=== PATIENT | female | born 1950 | race Caucasian/White ===

== ENCOUNTER → 2020-01-16 | Outpatient (CLI) | payer MEDICARE, BC ==
--- NOTE | 2020-01-16 11:27 | Diagnostic Imaging Report ---
EXAM: Thyroid Ultrasound INDICATION: ^HYPERPARATHYROIDISM/HYPERCALCEMIA COMPARISON: None TECHNIQUE: Transverse and sagittal images were obtained of the thyroid gland. FINDINGS: Thyroid gland: Size: Right lobe: 4.7 x 1.6 x 2 cm, Normal in size Left lobe: 4.7 x 1.5 x 1.6 cm, Normal in size Isthmus: 0.5 cm, mildly thickened Appearance: Heterogeneous echotexture without increased vascularity Masses/Nodules: Right lobe: None Left lobe: 1.4 x 1.3 x 0.9 cm solid (2 pts) nodule in the interpolar region with smooth margin (0 pts), [id number]-[id number]-gmud (0 pts), hypoechoic (2 pts), and macrocalcifications (1 pt). TR4b. 0.7 x 0.6 x 0.5 cm cystic (0 pts) nodule in the lower pole with smooth margin (0 pts), [id number]-[id number]-dsya (0 pts), anechoic (0 pts), and punctate peripheral calcification. TR2, Not Suspicious: No FNA Parathyroid: No focal parathyroid masses. IMPRESSION: 1. Heterogeneous echotexture of the thyroid gland which may reflect nonspecific thyroiditis. 2. Left lobe 1.4 x 1.3 x 0.9 cm TR4b nodule. Follow-up sonography is recommended at 1, 2, 3, and 5 years. Signed by: Blayne Foster MD on 01/16/2020 11:24 AM
== END ==
LOC: US 09:15
PROVIDERS: ATTEND Internal Medicine
DX: E83.52 Hypercalcemia (principal)
CPT/HCPCS: 76536

== ENCOUNTER → 2020-01-24 | Outpatient (CLI) | payer MEDICARE, BC ==
--- NOTE | 2020-01-24 14:59 | Diagnostic Imaging Report ---
EXAM: BONE MINERAL DENSITY HISTORY: Hypercalcemia COMPARISON: None DISCUSSION: Evaluation of the left hip and lumbar spine was performed utilizing DEXA Hologic bone densitometer. The study is technically adequate. The patient's fracture risk is compared to an age-matched control. The patient denies prior surgery/fracture of the spine, hips or forearm. Left hip femoral neck bone mineral density: 0.788 g/cm2, T-score is -0.6, Z-score is 1.2. Left hip total bone mineral density: 0.836 g/cm2, T-score is -0.9, Z-score is 0.6. Lumbar spine total bone mineral density: 1.061 gm/cm2, T-score is 0.1, Z-score is 2.2. Impression: Bone mineralization by WHO Classification is normal, the fracture risk is not increased. Signed by: Dr. Brian Palomo M.D. on 01/24/2020 2:56 PM
--- NOTE | 2020-01-24 20:22 | Diagnostic Imaging Report ---
Parathyroid Scan with SPECT Reason for exam: Hyperparathyroidism Radiopharmaceutical: Tc-99m sestamibi 27 mCi After intravenous administration of the radiopharmaceutical, immediate and 2-hour planar images of the neck and upper chest were obtained. Tomographic images of the neck and upper chest were obtained following the initial planar images. On the initial planar images, a focus of increased tracer is seen in the mid aspect of the right thyroid lobe. On the tomographic images, this focus is localized immediately posterior to the plane of the thyroid at the mid aspect of the right thyroid lobe. On the delayed planar images, the thyroid washes out adequately and this focus persists. No other focal abnormalities are identified. Impression: Single enlarged hypermetabolic parathyroid gland is identified immediately posterior to the mid aspect of the right thyroid lobe. Signed by: Dr. Cristela Moreno M.D. on 01/24/2020 8:19 PM
== END ==
LOC: NM 13:03
PROVIDERS: ATTEND Internal Medicine
DX: E83.52 Hypercalcemia (principal)
CPT/HCPCS: 77080; 78071; A9500

== ENCOUNTER → 2020-02-01 | Outpatient (CLI) | payer MEDICARE, BC | LOC: MAMMO 10:20 | PROVIDERS: ATTEND Internal Medicine | DX: Z12.31 Encounter for screening mammogram for malignant neoplasm of breast (principal) | CPT/HCPCS: 77067 ==

== ENCOUNTER → 2021-11-17 | Outpatient (CLI) | payer MEDICARE, BC | LOC: MAMMO 08:49 | PROVIDERS: ATTEND Internal Medicine | DX: Z12.31 Encounter for screening mammogram for malignant neoplasm of breast (principal); M85.88 Other specified disorders of bone density and structure, other site | CPT/HCPCS: 77067; 77080 ==

== ENCOUNTER → 2022-03-13 | Outpatient (CLI) | payer MEDICARE, BC ==
[~2022-03-13] MED LIST: GADOBENATE DIMEGLUMINE 1 ML IV ONE
[2022-03-13 09:20] LABS: CREATININE, SERUM 0.68 mg/dL (0.57-1.11)
== END ==
LOC: MRI 08:35
PROVIDERS: ATTEND Otolaryngology
DX: H90.3 Sensorineural hearing loss, bilateral (principal); H93.12 Tinnitus, left ear
CPT/HCPCS: 36415; 70553; 82565; 84520; A9577

== ENCOUNTER → 2022-07-24 | Outpatient (CLI) | payer MEDICARE | LOC: MRI 11:07 | PROVIDERS: ATTEND Internal Medicine | DX: G89.11 Acute pain due to trauma (principal) | CPT/HCPCS: 72148 ==

== ENCOUNTER 2023-02-12 09:02 | Inpatient (IN) | payer MEDICARE ==
[~2023-02-12] VITALS: Ht 162.6 cm; Wt 93.0 kg
[~2023-02-12 09:02] MED LIST changes: +ACETAMINOPHEN-1 EAC4 PO; +ADVIL100 M1; -GADOBENATE DIMEGLUMINE 1 ML IV ONE; +INVOKAMET 150-1 EAC1 PO; +ULTRAM 50MG50 MG PO
[2023-02-12 09:34] LABS: BASOPHILS # (AUTO) 0.1 (0.0-0.1); BASOPHILS % 0.8 % (0.0-1.0); EOSINOPHILS # (AUTO) 0.3 (0.0-0.4); EOSINOPHILS % 3.9 % (0.0-6.0); HEMOGLOBIN 13.9 g/dL (12.0-16.0); LYMPHOCYTES # (AUTO) 1.9 (1.0-3.2); LYMPHOCYTES % 21.3 % (18.0-39.1); MEAN CORPUSCULAR HEMOGLOBIN 29.3 pg (28-32); MEAN CORPUSCULAR HGB CONC 33.1 g/dL (31-35); MEAN CORPUSCULAR VOLUME 88.6 fL (81-99); MONOCYTES # (AUTO) 0.7 (0.2-0.8); MONOCYTES % 8.1 % (4.4-11.3); NEUTROPHILS # (AUTO) 5.7 (2.1-6.9); NEUTROPHILS % 65.3 % (38.7-80.0); PLATELET COUNT 332 x10e3/uL (140-360); RED BLOOD COUNT 4.74 x10e6/uL (3.6-5.1); RED CELL DISTRIBUTION WIDTH 13.7 % (11.7-14.4); WHITE BLOOD COUNT 8.67 x10e3/uL (4.8-10.8)
[2023-02-12 09:59] LABS: ANION GAP 15.2 mmol/L (8-16); CALCIUM 11.1 mg/dL (8.4-10.2); CREATININE, SERUM 0.66 mg/dL (0.57-1.11); POTASSIUM 4.2 mmol/L (3.5-5.1)
[2023-02-12] MEDS ORDERED: LACTATED RINGER'S 1,000 ML ONE (10:07)
[2023-02-12] MEDS ORDERED: Vancomycin IV 1 GM VIAL ONE (11:54)
[2023-02-12] MEDS ORDERED: BUPIVACAINE HCL 0.5% INJ 30 ML VIAL INJ ONE (11:54)
[2023-02-12] MEDS ORDERED: LIDOCAINE HCL 2% LOCAL INJ 5 ML SDV VIAL INJ ONE (12:25)
[2023-02-12] MEDS ORDERED: ONDANSETRON HCL INJ 2MG/ML 2ML 2 MG/ML VIAL ONE (12:25)
[2023-02-12] MEDS ORDERED: SEVOFLURANE INHAL SOLN 250 ML PEN BTL ONE (12:25)
[2023-02-12] MEDS ORDERED: PROPOFOL IV EMULSION 10 MG/ML 20 ML VIAL ONE (12:25)
[2023-02-12] MEDS ORDERED: DEXAMETHASONE SOD PHOS INJ 4 MG/ML SDV ONE (12:25)
[2023-02-12] MEDS ORDERED: EPINEPHRINE HCL 1:1000 1ML 1 MG/ML AMP ONE (12:45)
[2023-02-12] MEDS ORDERED: ROPIVACAINE 0.5% 5 MG/ML 30 ML SDV ONE (12:45)
[2023-02-12] MEDS ORDERED: FENTANYL CITRATE/PF 100MCG/2 ML INJ ONE ×2 (13:45→13:52)
[2023-02-12] MEDS ORDERED: MIDAZOLAM HCL 2 MG/2 ML VIAL ONE (13:45)
[2023-02-12] MEDS ORDERED: ONDANSETRON HCL 4 MG ORAL DISINTEGRATING TAB ONE (16:43)
[2023-02-12] MEDS ORDERED: SCOPOLAMINE 1 MG PATCH ONE (16:58)
[2023-02-12] MEDS ORDERED: ONDANSETRON HCL 4 MG ORAL DISINTEGRATING TAB PO PRN (17:15)
[2023-02-12 18:43] VITALS: BP 133/63; PULSE 100; RESP 18; TEMP 97.9; O2SAT 96
[2023-02-12 20:00] VITALS: BP_SYST 128; BP_SYST 133; BP_DIAS 58; BP_DIAS 63; PULSE 100; PULSE 94; RESP 18; TEMP 97.9; TEMP 98.1; O2SAT 96
[2023-02-12 20:45] VITALS: BP 121/56; PULSE 86; RESP 18; TEMP 98.3; O2SAT 99
[2023-02-12 21:00] VITALS: BP 121/56; PULSE 86; RESP 18; TEMP 98.3; O2SAT 99
[2023-02-13 04:00] VITALS: BP 130/66; PULSE 96; RESP 18; TEMP 98.3; O2SAT 98
[2023-02-13] MEDS: ACETAMINOPHEN 325 MG TAB PO PRN (07:49)
[2023-02-13 08:42] VITALS: BP 110/58; PULSE 100; RESP 18; TEMP 98.1; O2SAT 95
[2023-02-13] MEDS: HYDROCODONE/APAP 7.5MG-325MG 1 EA TAB PO PRN ×3 (09:39→18:13)
[2023-02-13 12:37] VITALS: BP 112/57; PULSE 98; RESP 20; TEMP 99; O2SAT 93
[2023-02-13 16:25] VITALS: BP 125/67; PULSE 98; RESP 18; TEMP 99.1; O2SAT 93
[2023-02-13 20:00] VITALS: BP 129/65; PULSE 93; RESP 18; TEMP 98.3; O2SAT 92
[2023-02-14] VITALS: BP 124/71; PULSE 91; RESP 18; TEMP 98.1; O2SAT 93
[2023-02-14] MEDS: HYDROCODONE/APAP 7.5MG-325MG 1 EA TAB PO PRN ×4 (01:31→23:08)
[2023-02-14 08:10] VITALS: BP 123/68; PULSE 91; RESP 18; TEMP 97.7; O2SAT 95
[2023-02-14 09:25] LABS: BASOPHILS # (AUTO) 0.1 (0.0-0.1); BASOPHILS % 0.7 % (0.0-1.0); EOSINOPHILS # (AUTO) 0.3 (0.0-0.4); EOSINOPHILS % 2.5 % (0.0-6.0); HEMATOCRIT 40.4 % (34.2-44.1); HEMOGLOBIN 13.3 g/dL (12.0-16.0); LYMPHOCYTES # (AUTO) 2.6 (1.0-3.2); LYMPHOCYTES % 25.9 % (18.0-39.1); MEAN CORPUSCULAR HEMOGLOBIN 29.5 pg (28-32); MEAN CORPUSCULAR HGB CONC 32.9 g/dL (31-35); MEAN CORPUSCULAR VOLUME 89.6 fL (81-99); MONOCYTES % 10.3 % (4.4-11.3); NEUTROPHILS # (AUTO) 6.1 (2.1-6.9); NEUTROPHILS % 60.2 % (38.7-80.0); PLATELET COUNT 279 x10e3/uL (140-360); RED BLOOD COUNT 4.51 x10e6/uL (3.6-5.1); RED CELL DISTRIBUTION WIDTH 13.7 % (11.7-14.4)
[2023-02-14 09:51] LABS: ALBUMIN 3.2 g/dL (3.5-5.0); ALBUMIN/GLOBULIN RATIO 0.9 (0.8-2.0); ANION GAP 14.4 mmol/L (8-16); CREATININE, SERUM 0.68 mg/dL (0.57-1.11); POTASSIUM 4.4 mmol/L (3.5-5.1)
[2023-02-14 12:10] VITALS: BP 136/71; PULSE 94; RESP 18; TEMP 98.2; O2SAT 95
[2023-02-14 16:15] VITALS: BP 139/79; PULSE 95; RESP 16; TEMP 98.5; O2SAT 95
[2023-02-14 20:00] VITALS: BP 139/79; PULSE 95; RESP 16; TEMP 98.5; O2SAT 95
[2023-02-14 20:02] VITALS: BP 144/73; PULSE 96; RESP 18; TEMP 98; O2SAT 95
[2023-02-15] VITALS (10 sets, daily range): BP systolic 137–157; BP diastolic 81–86; PULSE 94–129; RESP 18–22; TEMP 98.4–98.9; O2SAT 95–98
[2023-02-15] MEDS: METFORMIN HCL 500 MG TAB PO SCH (16:42)
[2023-02-15] MEDS: ACETAMINOPHEN 325 MG TAB PO PRN (20:44)
[2023-02-16] VITALS (10 sets, daily range): BP systolic 127–150; BP diastolic 76–94; PULSE 95–120; RESP 16–22; TEMP 97.6–99; O2SAT 93–97
[2023-02-16 05:39] LABS: BASOPHILS # (AUTO) 0.1 (0.0-0.1); BASOPHILS % 0.6 % (0.0-1.0); EOSINOPHILS # (AUTO) 0.3 (0.0-0.4); EOSINOPHILS % 3.4 % (0.0-6.0); HEMATOCRIT 42.8 % (34.2-44.1); HEMOGLOBIN 14.2 g/dL (12.0-16.0); LYMPHOCYTES # (AUTO) 1.9 (1.0-3.2); LYMPHOCYTES % 19.3 % (18.0-39.1); MEAN CORPUSCULAR HEMOGLOBIN 29.8 pg (28-32); MEAN CORPUSCULAR HGB CONC 33.2 g/dL (31-35); MEAN CORPUSCULAR VOLUME 89.7 fL (81-99); NEUTROPHILS # (AUTO) 6.6 (2.1-6.9); PLATELET COUNT 221 x10e3/uL (140-360); RED BLOOD COUNT 4.77 x10e6/uL (3.6-5.1); RED CELL DISTRIBUTION WIDTH 13.3 % (11.7-14.4); WHITE BLOOD COUNT 10.02 x10e3/uL (4.8-10.8)
[2023-02-16 06:31] LABS: ANION GAP 16.1 mmol/L (8-16); CALCIUM 11.9 mg/dL (8.4-10.2); CREATININE, SERUM 0.63 mg/dL (0.57-1.11); MAGNESIUM 1.8 MG/DL (1.3-2.1); PHOSPHORUS 1.8 MG/DL (2.3-4.7); POTASSIUM 4.1 mmol/L (3.5-5.1)
[2023-02-16] MEDS: METFORMIN HCL 500 MG TAB PO SCH ×2 (08:00→17:00)
[2023-02-16] MEDS ORDERED: SODIUM PHOSPHATE 15 MMOL in SODIUM CHLORIDE 0.9% 250ML 250 ML IV ONE (09:30)
[2023-02-16] MEDS: ACETAMINOPHEN 325 MG TAB PO PRN (13:04)
[2023-02-16] MEDS: SODIUM CHLORIDE 0.9% 1000ML 1,000 ML IV SCH (17:19)
[2023-02-16] MEDS: FUROSEMIDE INJ 10 MG/ML 4 ML VIAL IV ONE ×2 (21:30→21:59)
[2023-02-16] MEDS: DIPHENHYDRAMINE HCL 25 MG CAP PO PRN (23:40)
[2023-02-17] VITALS (10 sets, daily range): BP systolic 134–162; BP diastolic 82–93; PULSE 77–124; RESP 17–20; TEMP 97.5–98.6; O2SAT 92–100
[2023-02-17] MEDS: SODIUM CHLORIDE 0.9% 1000ML 1,000 ML IV SCH (03:00)
[2023-02-17 05:54] LABS: ANION GAP 16.4 mmol/L (8-16); CALCIUM 11.9 mg/dL (8.4-10.2); CREATININE, SERUM 0.63 mg/dL (0.57-1.11); PHOSPHORUS 2.1 MG/DL (2.3-4.7); POTASSIUM 4.4 mmol/L (3.5-5.1)
[2023-02-17] MEDS: METFORMIN HCL 500 MG TAB PO SCH (08:00)
[2023-02-17] MEDS ORDERED: ENOXAPARIN SOD INJ 40 MG/0.4 ML SYR SC SCH (17:00)
[2023-02-17] MEDS: INVOKAMET PO SCH (17:00)
[2023-02-17] MEDS ORDERED: SODIUM PHOSPHATE 15 MMOL in SODIUM CHLORIDE 0.9% 250ML 250 ML IV ONE (18:00)
[2023-02-18] VITALS (8 sets, daily range): BP systolic 135–149; BP diastolic 76–85; PULSE 108–126; RESP 16–19; TEMP 97–97.8; O2SAT 91–96
[2023-02-18] MEDS: DIPHENHYDRAMINE HCL 25 MG CAP PO PRN (00:35)
[2023-02-18] MEDS: INVOKAMET PO SCH ×2 (08:00→16:56)
[2023-02-18] MEDS ORDERED: ENOXAPARIN SODIUM INJ 100 MG/ML SYR SC ONE (12:30)
[2023-02-18] MEDS: ENOXAPARIN SODIUM INJ 100 MG/ML SYR SC SCH (22:29)
[2023-02-19] VITALS (8 sets, daily range): BP systolic 129–147; BP diastolic 73–85; PULSE 97–114; RESP 16–22; TEMP 97.4–98.2; O2SAT 91–100
[2023-02-19] MEDS: DIPHENHYDRAMINE HCL 25 MG CAP PO PRN (01:08)
[2023-02-19] MEDS: HYDROCODONE/APAP 7.5MG-325MG 1 EA TAB PO PRN (05:48)
[2023-02-19] MEDS: ENOXAPARIN SODIUM INJ 100 MG/ML SYR SC SCH ×2 (09:41→23:06)
[2023-02-19] MEDS: TRAMADOL HCL 50 MG TAB PO PRN (09:42)
[2023-02-19] MEDS: INVOKAMET PO SCH ×2 (09:44→18:15)
[2023-02-19 17:10] LABS: ALPHA 2 GLOBULIN URINE PEP 15.7 % (.)
[2023-02-20] VITALS: BP 137/79; PULSE 102; RESP 18; TEMP 97.7; O2SAT 98
[2023-02-20 04:00] VITALS: BP 147/79; PULSE 101; RESP 18; TEMP 98.4; O2SAT 98
[2023-02-20] MEDS: TRAMADOL HCL 50 MG TAB PO PRN (04:36)
[2023-02-20 08:19] VITALS: BP 180/94; PULSE 98; RESP 17; TEMP 98.7; O2SAT 98
[2023-02-20 08:36] VITALS: BP 180/94; PULSE 98; RESP 17; TEMP 98.7; O2SAT 98
[2023-02-20] MEDS: ENOXAPARIN SODIUM INJ 100 MG/ML SYR SC SCH (09:52)
[2023-02-20] MEDS: INVOKAMET PO SCH (09:53)
[2023-02-20 11:58] LABS: BASOPHILS # (AUTO) 0.1 (0.0-0.1); BASOPHILS % 0.5 % (0.0-1.0); EOSINOPHILS # (AUTO) 0.2 (0.0-0.4); EOSINOPHILS % 2.2 % (0.0-6.0); HEMATOCRIT 43.7 % (34.2-44.1); LYMPHOCYTES # (AUTO) 2.9 (1.0-3.2); LYMPHOCYTES % 26.8 % (18.0-39.1); MEAN CORPUSCULAR VOLUME 90.7 fL (81-99); MONOCYTES # (AUTO) 0.9 (0.2-0.8); MONOCYTES % 8.3 % (4.4-11.3); NEUTROPHILS # (AUTO) 6.6 (2.1-6.9); NEUTROPHILS % 61.6 % (38.7-80.0); PLATELET COUNT 246 x10e3/uL (140-360); RED BLOOD COUNT 4.82 x10e6/uL (3.6-5.1); RED CELL DISTRIBUTION WIDTH 13.3 % (11.7-14.4); WHITE BLOOD COUNT 10.66 x10e3/uL (4.8-10.8)
[2023-02-20 12:40] VITALS: BP 125/78; PULSE 113; RESP 20; TEMP 98.2; O2SAT 96
[2023-02-20 12:50] LABS: ANION GAP 18.6 mmol/L (8-16); CREATININE, SERUM 0.61 mg/dL (0.57-1.11); POTASSIUM 4.6 mmol/L (3.5-5.1)
[2023-02-20 12:51] LABS: CALCIUM 13.8 mg/dL (8.4-10.2)
[2023-02-20] MEDS ORDERED: SODIUM CHLORIDE 0.9% 1000ML 1,000 ML IV SCH (14:00)
[2023-02-20 16:15] VITALS: BP 121/70; PULSE 114; RESP 18; TEMP 98.9; O2SAT 93
[2023-02-20] MEDS ORDERED: APIXABAN 5 MG TABLET PO SCH (21:00)
== END 2023-02-20 16:50 | DRG 492 ==
LOC: OR 09:02 → MED/SURG 17:33 → OBSVTOIN 02-13 09:31
PROVIDERS: ADMIT Internal Medicine; ATTEND Internal Medicine
PROC: 0QSJ04Z Reposition Right Fibula with Internal Fixation Device, Open Approach (ICD-10-PCS; 2023-02-12)
PROC: 0QSG04Z Reposition Right Tibia with Internal Fixation Device, Open Approach (ICD-10-PCS; principal; 2023-02-12 13:21)
DX: S82.851A Displaced trimalleolar fracture of right lower leg, initial encounter for closed fracture (principal); I26.99 Other pulmonary embolism without acute cor pulmonale; I82.492 Acute embolism and thrombosis of other specified deep vein of left lower extremity; E78.00 Pure hypercholesterolemia, unspecified; W10.8XXA Fall (on) (from) other stairs and steps, initial encounter; Y92.9 Unspecified place or not applicable; R00.0 Tachycardia, unspecified; E66.9 Obesity, unspecified; E11.9 Type 2 diabetes mellitus without complications; E21.0 Primary hyperparathyroidism; S93.431A Sprain of tibiofibular ligament of right ankle, initial encounter; R26.2 Difficulty in walking, not elsewhere classified; R42 Dizziness and giddiness; Z79.84 Long term (current) use of oral hypoglycemic drugs; Z83.3 Family history of diabetes mellitus; Z82.49 Family history of ischemic heart disease and other diseases of the circulatory system; Z79.4 Long term (current) use of insulin; L27.1 Localized skin eruption due to drugs and medicaments taken internally; T39.1X5A Adverse effect of 4-Aminophenol derivatives, initial encounter; Y92.238 Other place in hospital as the place of occurrence of the external cause; Z68.35 Body mass index [BMI] 35.0-35.9, adult
CPT/HCPCS: 36415; 71046; 71260; 76000; 78071; 80048; 80053; 82948; 83735; 83970; 84100; 84165; 84166; 85025; 93005; 93306; 93970; 94799; A9512; C1713; C1769; G0378; J0171; J1100; J1650; J1940; J2001; J2250; J2405; J2795; J7030; J7050; Q0162